=== PATIENT | female | born 1945 | race Caucasian/White ===

== ENCOUNTER 2017-01-07 18:40 | Inpatient (IN) | payer MEDICARE ==
[~2017-01-07] VITALS: Ht 157.5 cm; Wt 71.6 kg
[2017-01-07 18:45] VITALS: BP 199/91; PULSE 18; PULSE 80; RESP 16; TEMP 97.9; O2SAT 95
[2017-01-07] MEDS ORDERED: SODIUM CHLOR 0.9% 1000 ML INJ 1,000 ML IV SCH (19:03)
--- NOTE | 2017-01-07 19:09 | PD ---
HPI Chief Complaint: Chest Pain Time Seen by Provider: 18:58 Travel History International Travel<30 days: No Contact w/Intl Traveler<30days: No Traveled to known affect area: No History of Present Illness HPI The patient is a 71-year-old female who presents to the emergency department for epigastric abdominal pain and lower chest pain that started at 5 PM. The patient was eating garlic knots at approximately 5 PM when she developed epigastric abdominal pain and lower chest pain that radiates to the posterior aspect of the neck, left shoulder blade, and left arm. She does complain of shortness of breath but denies any nausea, vomiting, or diaphoresis. The patient denies any known history of coronary artery disease, hypertension, hyperlipidemia, tobacco use, or previous stress test. The patient denies any history of pancreatitis or biliary colic/symptomatic gallstones. The patient's primary physician is Dr. Abarca. The patient states the symptoms are moderate, exacerbated after eating garlic bouts, and there are no current alleviating factors. PFSH Past Medical History Narrative Medical Asthma Past Surgical History Narrative Surgical Neck surgery, bladder surgery Social History Tobacco Use: No Allergies-Medications (Allergen,Severity, Reaction): Coded Allergies: No Known Allergies (Unverified , 01/07/17) Reported Meds & Prescriptions Reported Meds & Active Scripts Active Reported Nexium (Esomeprazole DR) 20 Mg Capdr 20 Mg PO DAILY Breo Ellipta Inh (Fluticasone/Vilanterol) 100-25 Mcg/Act Inh 1 Puff INH HS Use daily at the same time. Review of Systems Except as stated in HPI: all other systems reviewed are Neg General / Constitutional: No: Fever Cardiovascular: Positive: Chest Pain or Discomfort Respiratory: Positive: Shortness of Breath Gastrointestinal: Positive: Abdominal Pain, No: Nausea, Vomiting Genitourinary: No: Dysuria Skin: No Rash Physical Exam Narrative GENERAL: Awake, alert, pleasant 71-year-old female who appears her stated age and is in no acute respiratory distress. SKIN: Focused skin assessment warm/dry. HEAD: Atraumatic. Normocephalic. EYES: Pupils equal and round. No scleral icterus. No injection or drainage. ENT: No nasal bleeding or discharge. Mucous membranes pink and moist. NECK: Trachea midline. No JVD. CARDIOVASCULAR: Regular rate and rhythm. No murmur appreciated. RESPIRATORY: No accessory muscle use. Clear to auscultation. Breath sounds equal bilaterally. GASTROINTESTINAL: Abdomen soft, tender palpation epigastrium and right upper quadrant. MUSCULOSKELETAL: No obvious deformities. No clubbing. No cyanosis. No edema. NEUROLOGICAL: Awake and alert. No obvious cranial nerve deficits. Motor grossly within normal limits. Normal speech. PSYCHIATRIC: Appropriate mood and affect; insight and judgment normal. Data Data Last Documented VS Vital Signs Date Time Temp Pulse Resp B/P (MAP) Pulse Ox O2 Delivery O2 Flow Rate FiO2 01/07/17 21:29 72 20 181/79 (113) 94 Nasal Cannula 2.00 01/07/17 18:45 97.9 Orders Orders Complete Blood Count With Diff (01/07/17 19:03) Comprehensive Metabolic Panel (01/07/17 19:) Lipase (01/07/17 19:03) Lactic Acid (01/07/17 19:03) Prothrombin Time / Inr (Pt) (01/07/17 19:03) Act Partial Throm Time (Ptt) (01/07/17 19:03) Urinalysis - C+S If Indicated (01/07/17 19:03) Iv Access Insert/Monitor (01/07/17 19:03) Ecg Monitoring (01/07/17 19:03) Oximetry (01/07/17 19:03) Morphine Inj (Morphine Inj) (01/07/17 19:15) Ondansetron Inj (Zofran Inj) (01/07/17 19:15) Sodium Chlor 0.9% 1000 Ml Inj (Ns 1000 M (01/07/17 19:03) Sodium Chloride 0.9% Flush (Ns Flush) (01/07/17 19:15) Electrocardiogram (01/07/17 19:03) Chest, Single Ap (01/07/17 19:03) Troponin I (01/07/17 19:03) Creatine Kinase (Cpk) (01/07/17 19:03) Ct Abd/Pel W Iv Contrast(Rout) (01/07/17 ) Ct Thorax/ Chest W Iv Contrast (01/07/17 ) Morphine Inj (Morphine Inj) (01/07/17 20:30) Iohexol 350 Inj (Omnipaque 350 Inj) (01/07/17 20:28) Act Partial Throm Time (Ptt) (01/07/17 21:38) Type And Screen (01/07/17 21:38) Ng Gastric Tube Insert/Monitor (01/07/17 21:44) Admit Order (Ed Use Only) (01/07/17 22:19) Chest, Single Ap (01/07/17 ) Labs Laboratory Tests Test 01/07/17 19:30 01/07/17 21:45 White Blood Count 9.5 TH/MM3 Red Blood Count 4.54 MIL/MM3 Hemoglobin 14.7 GM/DL Hematocrit 42.6 % Mean Corpuscular Volume 93.9 FL Mean Corpuscular Hemoglobin 32.4 PG Mean Corpuscular Hemoglobin Concent 34.5 % Red Cell Distribution Width 12.4 % Platelet Count 334 TH/MM3 Mean Platelet Volume 7.6 FL Neutrophils (%) (Auto) 69.2 % Lymphocytes (%) (Auto) 22.6 % Monocytes (%) (Auto) 6.1 % Eosinophils (%) (Auto) 1.6 % Basophils (%) (Auto) 0.5 % Neutrophils # (Auto) 6.6 TH/MM3 Lymphocytes # (Auto) 2.2 TH/MM3 Monocytes # (Auto) 0.6 TH/MM3 Eosinophils # (Auto) 0.2 TH/MM3 Basophils # (Auto) 0.1 TH/MM3 CBC Comment DIFF FINAL Differential Comment Prothrombin Time 10.2 SEC Prothromb Time International Ratio 0.9 RATIO Activated Partial Thromboplast Time 24.2 SEC 22.0 SEC Blood Urea Nitrogen 10 MG/DL Creatinine 0.78 MG/DL Random Glucose 114 MG/DL Total Protein 7.4 GM/DL Albumin 3.9 GM/DL Calcium Level 9.0 MG/DL Alkaline Phosphatase 109 U/L Aspartate Amino Transf (AST/SGOT) 34 U/L Alanine Aminotransferase (ALT/SGPT) 28 U/L Total Bilirubin 0.3 MG/DL Sodium Level 138 MEQ/L Potassium Level 3.9 MEQ/L Chloride Level 103 MEQ/L Carbon Dioxide Level 27.6 MEQ/L Anion Gap 7 MEQ/L Estimat Glomerular Filtration Rate 73 ML/MIN Lactic Acid Level 1.6 mmol/L Total Creatine Kinase 121 U/L Troponin I LESS THAN 0.02 NG/ML Lipase 254 U/L MDM Medical Decision Making Medical Screen Exam Complete: Yes Emergency Medical Condition: Yes Medical Record Reviewed: Yes Interpretation(s) EKG reveals normal sinus rhythm with a rate of 64. No ischemic changes or ectopy noted. Chest x-ray reveals suspect a large hiatal hernia. Laboratory Tests Test 01/07/17 19:30 White Blood Count 9.5 TH/MM3 Red Blood Count 4.54 MIL/MM3 Hemoglobin 14.7 GM/DL Hematocrit 42.6 % Mean Corpuscular Volume 93.9 FL Mean Corpuscular Hemoglobin 32.4 PG Mean Corpuscular Hemoglobin Concent 34.5 % Red Cell Distribution Width 12.4 % Platelet Count 334 TH/MM3 Mean Platelet Volume 7.6 FL Neutrophils (%) (Auto) 69.2 % Lymphocytes (%) (Auto) 22.6 % Monocytes (%) (Auto) 6.1 % Eosinophils (%) (Auto) 1.6 % Basophils (%) (Auto) 0.5 % Neutrophils # (Auto) 6.6 TH/MM3 Lymphocytes # (Auto) 2.2 TH/MM3 Monocytes # (Auto) 0.6 TH/MM3 Eosinophils # (Auto) 0.2 TH/MM3 Basophils # (Auto) 0.1 TH/MM3 CBC Comment DIFF FINAL Differential Comment Prothrombin Time 10.2 SEC Prothromb Time International Ratio 0.9 RATIO Activated Partial Thromboplast Time 24.2 SEC Blood Urea Nitrogen 10 MG/DL Creatinine 0.78 MG/DL Random Glucose 114 MG/DL Total Protein 7.4 GM/DL Albumin 3.9 GM/DL Calcium Level 9.0 MG/DL Alkaline Phosphatase 109 U/L Aspartate Amino Transf (AST/SGOT) 34 U/L Alanine Aminotransferase (ALT/SGPT) 28 U/L Total Bilirubin 0.3 MG/DL Sodium Level 138 MEQ/L Potassium Level 3.9 MEQ/L Chloride Level 103 MEQ/L Carbon Dioxide Level 27.6 MEQ/L Anion Gap 7 MEQ/L Estimat Glomerular Filtration Rate 73 ML/MIN Lactic Acid Level 1.6 mmol/L Total Creatine Kinase 121 U/L Troponin I LESS THAN 0.02 NG/ML Lipase 254 U/L Last Impressions Chest X-Ray 01/07/17 583 Signed Impressions: Service Date/Time: January 19:20 - CONCLUSION: Suspected large hiatal hernia. Handy Dhaliwal MD CT of the thorax reveals complex hiatal hernia. This predominantly consist of the mid and distal body of the stomach. These areas are flipped superiorly into the hernia sac consistent with a volvulus. Suspected consolidation or atelectasis adjacent to the hernia sac in the left lower lobe. CT abdomen and pelvis with IV contrast reveals gastric volvulus with the mid and distal gastric body seen herniating into a hiatal hernia sac. There is gastric dilation. Gallstones. Multiple hypodensities in the liver likely related to cyst or hemangioma's. Colonic diverticula. Chest x-ray status post NG tube placement reveals there is a hernia sac seen in the retrocardiac area. This contains the body of the stomach best seen on the CT examination. The NG tube is seen extending inferiorly to the expected location of the EG junction region and then is directed towards the left. The hernia sac appears unchanged from a prior exam. CT the abdomen and pelvis reveals a large hiatal hernia containing the majority of the stomach. I am not able to appreciate any discrete volvulus according to radiology. Small hepatic cyst. Cholelithiasis. Differential Diagnosis Differential diagnosis includes atypical ACS, gastritis, GERD, esophageal spasm , perforated viscus, cholecystitis, pancreatitis, biliary colic, AAA, dissection , hiatal hernia, perforated viscus. Narrative Course IV was established, labs are drawn and sent, and the patient was placed on cardiac telemetry monitoring and continuous pulse oximetry monitoring. The patient was administer morphine, Zofran, and IV fluids. Upright chest x-ray was obtained to rule out perforated viscus. CT the abdomen and pelvis with IV contrast was ordered to evaluate the gallbladder, pancreas, and aorta. EKG was ordered and interpreted. EKG was unremarkable. Chest x-ray reveals hiatal hernia, however, there does appear to be a second ridge line, possibly gastric volvulus. Therefore, CT of the thorax was added to CT of the abdomen and pelvis. CT of the abdomen and pelvis is consistent with complex final hernia with gastric volvulus. I called the on-call general surgeon, Dr. Pelletier, however, the patient has [facility]. Therefore, the [facility] surgeon was paged at 9:35 PM. The patient's last meal was at 5 PM. I discussed the patient with the on-call [facility] general surgeon, Dr. Tripathi. After discussion it was agreed the patient evidently NG tube to suction, after decompression, patient would have oral contrast to the NG tube and repeat CT would be performed to evaluate the complex hiatal hernia with gastric volvulus more completely, for possible decompression. The patient will be admitted to the intensive care unit. I discussed the patient with Dr. Zazueta, who agrees with admission. The patient was reevaluated at 11 PM, she had over 500 cc of output through the NG tube. Her symptoms had considerably improved. CT of the abdomen with oral contrast to the NG tube was then obtained. Physician Communication Physician Communication The on-call [facility] surgeon was paged at 9:35 PM. I discussed the patient with Dr. Tripathi. I discussed the patient with the on-call four corner stayer machine operator, Dr. Zazueta, the patient will be admitted to [facility]. Diagnosis Primary Impression: Acute gastric volvulus Additional Impression: Hiatal hernia Admitting Information Admitting Physician Requests: Admit Condition: Stable Ryan Tovar MD Jan 07, 2017 19:09
[2017-01-07] MEDS ORDERED: MORPHINE SULFATE 4 MG/ML INJ IV PUSH ONE ×2 (19:15→20:30)
[2017-01-07] MEDS ORDERED: SODIUM CHLORIDE 0.9% FLUSH 10 ML FLUSH IV FLUSH PRN ×2 (19:15→23:45)
[2017-01-07] MEDS ORDERED: ONDANSETRON HCL 4 MG/2 ML VIAL IVP ONE (19:15)
[2017-01-07] MEDS ORDERED: NEXI20CA PO (19:36)
[2017-01-07] MEDS ORDERED: FLUT1INH INH (19:36)
[2017-01-07 19:44] LABS: AUTOMATED NEUTROPHIL # 6.6 TH/MM3 (1.8-7.7); BASOPHIL # 0.1 TH/MM3 (0-0.2); BASOPHIL % 0.5 % (0.0-2.0); EOSINOPHIL # 0.2 TH/MM3 (0-0.4); EOSINOPHIL % 1.6 % (0.0-4.0); HEMATOCRIT 42.6 % (35.0-46.0); HEMO FLAGS DIFF FINAL; LYMPH % 22.6 % (9.0-44.0); LYMPHOCYTE # 2.2 TH/MM3 (1.0-4.8); MEAN CELL VOLUME 93.9 FL (80.0-100.0); MEAN CORPUSCULAR HEMOGLOBIN 32.4 PG (27.0-34.0); MEAN CORPUSCULAR HGB CONC 34.5 % (32.0-36.0); MONO % 6.1 % (0.0-8.0); NEUT % 69.2 % (16.0-70.0); PLATELET COUNT 334 TH/MM3 (150-450); RED BLOOD COUNT 4.54 MIL/MM3 (4.00-5.30); RED CELL DISTRIBUTION WIDTH 12.4 % (11.6-17.2); WHITE BLOOD COUNT 9.5 TH/MM3 (4.0-11.0)
[2017-01-07 19:46] VITALS: BP 172/80; PULSE 53; RESP 20; O2SAT 96
[2017-01-07 20:01] LABS: APTT (PATIENT) 24.2 SEC (24.3-30.1); INTERNATIONAL NORMALIZED RATIO 0.9 RATIO; PROTHROMBIN TIME - PATIENT 10.2 SEC (9.8-11.6)
[2017-01-07 20:02] LABS: ANION GAP 7 MEQ/L (5-15); BICARBONATE 27.6 MEQ/L (21.0-32.0); BLOOD UREA NITROGEN 10 MG/DL (7-18); CHLORIDE 103 MEQ/L (98-107); GLOMERULAR FILTRATION RATE 73 ML/MIN (>89); SODIUM (NA) 138 MEQ/L (136-145)
[2017-01-07 20:03] LABS: ALT (GPT) 28 U/L (10-53)
[2017-01-07 20:05] LABS: POTASSIUM 3.9 MEQ/L (3.5-5.1)
[2017-01-07 20:09] LABS: ALKALINE PHOSPHATASE 109 U/L (45-117); AST (GOT) 34 U/L (15-37); CREATINE KINASE 121 U/L (26-192); TOTAL BILIRUBIN ADULT 0.3 MG/DL (0.2-1.0)
--- NOTE | 2017-01-07 20:11 | RADRPT ---
EXAM DATE/TIME: 01/07/2017 19:20 [facility] COMPARISON: No previous studies available for comparison. INDICATIONS : Mid chest pain. MEDICAL HISTORY : Asthma. SURGICAL HISTORY : Appendectomy. ENCOUNTER: Initial ACUITY: 1 day PAIN SCORE: 10/10 LOCATION: Bilateral chest FINDINGS: There is a large retrocardiac mass with air lucency thought to be related to a hiatal hernia. The hea rt size is normal. The lungs are clear. There is a prominent dextroscoliosis of the thoracic spine. N o effusion is seen. CONCLUSION: Suspected large hiatal hernia. Handy Dhaliwal MD on January 07, 2017 at 20:09 Board Certified Radiologist. This report was verified electronically.
[2017-01-07] MEDS ORDERED: IOHEXOL 350 MG/ML 10 ML VIAL (for RAD DIAG) IVCONTRAST ONE (20:28)
[2017-01-07 21:29] VITALS: BP 181/79; PULSE 72; RESP 20; O2SAT 94
--- NOTE | 2017-01-07 21:29 | RADRPT ---
EXAM DATE/TIME: 01/07/2017 20:20 [facility] COMPARISON: No previous studies available for comparison. INDICATIONS : Abdomen pain; shortness of breath; sudden onset pain, Abnormal chest x-ray, evalua te hiatal hernia vs. volvulus. IV CONTRAST: 100 cc Omnipaque 350 (iohexol) IV ; Cumulative dose for multiple exams. RADIATION DOSE: 9.96 CTDIvol (mGy) ; Combined studies - Thorax/Abdomen/Pelvis MEDICAL HISTORY : None SURGICAL HISTORY : None. ENCOUNTER: Initial ACUITY: 1 day PAIN SCALE: 8/10 LOCATION: Bilateral chest TECHNIQUE: Volumetric scanning of the chest was performed. Using automated exposure control and adjustment of the mA and/or kV according to patient size, radiation dose was kept as low as reasonab ly achievable to obtain optimal diagnostic quality images. DICOM format image data is available adrianne ctronically for review and comparison. Follow-up recommendations for detected pulmonary nodules are based at a minimum on nodule size and pa tient risk factors according to Fleischner Society Guidelines. FINDINGS: There is a hiatal hernia containing the distal aspect of the stomach consistent with a volvulus. The EG junction is seen in the relatively normal position. The body of the stomach is seen to extend superiorly initially on the left and then to the right side of the hernia and the junction between the distal stomach and the duodenum is seen in the right upper abdomen just below the hiatal hernia. There is chronic emphysematous change seen in the upper lungs. There are some areas of linear scarri ng seen in the upper lungs being more prominent on the right. There is an area of consolidation and/ or atelectasis at the left lower lobe adjacent to the hiatal hernia sac. No effusion is seen. Signi ficant mediastinal adenopathy is not appreciated. There is a prominent dextroscoliosis of the thorac ic spine. The patient is to have a CT of the abdomen and pelvis to follow-up. CONCLUSION: 1. Complex hiatal hernia. This predominantly consists of the mid and distal body of the stomach. Th tom areas are flipped superiorly into the hernia sac consistent with a volvulus. 2. Suspected consolidation or atelectasis adjacent to the hernia sac in the left lower lobe. Handy Dhaliwal MD on January 07, 2017 at 21:18 Board Certified Radiologist. This report was verified electronically.
--- NOTE | 2017-01-07 21:36 | RADRPT ---
EXAM DATE/TIME: 01/07/2017 20:18 [facility] COMPARISON: No previous studies available for comparison. INDICATIONS : Shortness of breath. IV CONTRAST: 100 cc Omnipaque 350 (iohexol) IV ; Cumulative dose for multiple exams. ORAL CONTRAST: No oral contrast ingested. RADIATION DOSE: 9.96 CTDIvol (mGy) ; Combined studies - Thorax/Abdomen/Pelvis MEDICAL HISTORY : None SURGICAL HISTORY : None. ENCOUNTER: Initial ACUITY: 1 day PAIN SCALE: 8/10 LOCATION: Bilateral abdomen TECHNIQUE: Volumetric scanning of the abdomen and pelvis was performed. Using automated exposure control and adjustment of the mA and/or kV according to patient size, radiation dose was kept as low as reasonably achievable to obtain optimal diagnostic quality images. DICOM format image data is av ailable electronically for review and comparison. FINDINGS: There is a hiatal hernia sac containing the mid and distal aspect of the stomach. This is consistent with a volvulus. The EG junction region appears to be in a relatively normal position. The body of the stomach extends superiorly and to the left. The more distal aspect of the gastric body is seen on the right side. The junction between the distal stomach and the duodenum is seen in the right upper quadrant just below the hernia sac. The stomach does appear distended. Calcified gallstones are present. There are several hypodensities identified in the liver likely rel ated to cysts. The pancreas and spleen appear normal. The adrenal glands and kidneys are unremarkabl e. There is atherosclerotic calcification seen throughout the arterial system. An aneurysm is not s een. Significant adenopathy is not appreciated. There are colonic diverticula seen particularly in t he descending and sigmoid portions of the colon. The anterior abdominal wall appears intact. The pe lvic structures appear grossly intact. The patient has a severe dextroscoliosis of the thoracic spine and a compensatory levocurvature of the lumbar spine. This is associated with degenerative change se en with these findings. CONCLUSION: 1. Gastric volvulus with the mid and distal gastric body seen herniating into a hiatal hernia sac. T here is gastric dilatation. 2. Gallstones. 3. Multiple hypodensities in the liver likely related to cysts or hemangiomas. 4. Colonic diverticula. Handy Dhaliwal MD on January 07, 2017 at 21:21 Board Certified Radiologist. This report was verified electronically.
[2017-01-07] MEDS ORDERED: DIATRIZOATE MEGLUM/DIATRIZOATE SOD 9 ML CUP PO ONE (22:35)
[2017-01-07] MEDS ORDERED: DIATRIZOATE MEGLUM/DIATRIZOATE SOD 9 ML CUP ONE (22:36)
--- NOTE | 2017-01-07 22:58 | RADRPT ---
EXAM DATE/TIME: 01/07/2017 22:25 [facility] COMPARISON: CHEST SINGLE AP, January 07, 2017, 19:20. INDICATIONS : Post NG tube placement. MEDICAL HISTORY : Asthma SURGICAL HISTORY : Appendectomy. ENCOUNTER: Subsequent ACUITY: 1 day PAIN SCORE: 3/10 LOCATION: Bilateral chest FINDINGS: There is a hernia sac seen in the retrocardiac area. This contains the body of the stomach best seen on the CT examination. The NG tube is seen extending inferiorly to the expected location of the EG ju nction region and then is directed towards the left. The hernia sac appears unchanged from the prior exam. The heart size is normal. The lungs are grossly clear. There is a prominent dextroscoliosis of the thoracic spine. CONCLUSION: NG tube as described above. Hadny Dhaliwal MD on January 07, 2017 at 22:55 Board Certified Radiologist. This report was verified electronically.
[2017-01-07 23:03] VITALS: BP 128/70; PULSE 84; RESP 17; O2SAT 92
--- NOTE | 2017-01-07 23:36 | HHI.HP ---
HPI Service Critical Care Medicine Primary Care Physician Non-Staff Admission Diagnosis gastric volvulus, large hiatal hernia Diagnosis: Travel History International Travel<30 Days: No Contact w/Intl Traveler <30 Da: No Traveled to Known Affected Are: No History of Present Illness 71-year-old female with no significant past medical history presents with epigastric abdominal pain and lower chest pain that started at 5 PM. The patient was eating garlic knots at approximately 5 PM when she developed epigastric abdominal pain and lower chest pain that radiates to the posterior aspect of the neck, left shoulder blade, and left arm. She also complained of shortness of breath but denies any nausea, vomiting, or diaphoresis. The patient denies any known history of coronary artery disease, hypertension, hyperlipidemia, tobacco use, or previous stress test. CT of the chest abdomen and pelvis revealed large hiatal hernia with gastric volvulus. The NG tube was placed on a low wall suction for stomach decompression with significant relief of symptoms. Review of Systems Constitutional: DENIES: Diaphoretic episodes, Fatigue, Fever, Weight gain, Weight loss, Chills, Dizziness, Change in appetite, Night Sweats Endocrine: DENIES: Abnorml menstrual pattern, Heat/cold intolerance, Polydipsia , Polyuria, Polyphagia Eyes: DENIES: Blurred vision, Diplopia, Eye inflammation, Eye pain, Vision loss , Photosensitivity, Double Vision Ears, nose, mouth, throat: DENIES: Tinnitus, Hearing loss, Vertigo, Nasal discharge, Oral lesions, Throat pain, Hoarseness, Ear Pain, Running Nose, Epistaxis, Sinus Pain, Toothache, Odynophagia Respiratory: COMPLAINS OF: Shortness of breath, DENIES: Apneas, Cough, Snoring , Wheezing, Hemoptysis, Sputum production Cardiovascular: COMPLAINS OF: Chest pain, DENIES: Palpitations, Syncope, Dyspnea on Exertion, PND, Lower Extremity Edema, Orthopnea, Claudication Gastrointestinal: COMPLAINS OF: Abdominal pain, DENIES: Black stools, Bloody stools, Constipation, Diarrhea, Nausea, Vomiting, Difficulty Swallowing, Anorexia Genitourinary: DENIES: Abnormal vaginal bleeding, Dysmenorrhea, Dyspareunia, Sexual dysfunction, Urinary frequency, Urinary incontinence, Urgency, Hematuria , Dysuria, Nocturia, Vaginal discharge Musculoskeletal: DENIES: Joint pain, Muscle aches, Stiffness, Joint Swelling, Back pain, Neck pain Integumentary: DENIES: Abnormal pigmentation, Pruritus, Rash, Nail changes, Breast masses, Breast skin changes, Nipple discharge Hematologic/lymphatic: DENIES: Bruising, Lymphadenopathy Immunologic/allergic: DENIES: Eczema, Urticaria Neurologic: DENIES: Abnormal gait, Headache, Localized weakness, Paresthesias, Seizures, Speech Problems, Tremor, Poor Balance Psychiatric: DENIES: Anxiety, Confusion, Mood changes, Depression, Hallucinations, Agitation, Suicidal Ideation, Homicidal Ideation, Delusions Past Family Social History Allergies: Coded Allergies: No Known Allergies (Unverified , 01/07/17) Past Medical History Asthma Past Surgical History Neck Surgery Bladder surgery Reported Medications Reported Meds & Active Scripts Active Reported Nexium (Esomeprazole DR) 20 Mg Capdr 20 Mg PO DAILY Breo Ellipta Inh (Fluticasone/Vilanterol) 100-25 Mcg/Act Inh 1 Puff INH HS Use daily at the same time. Active Ordered Medications Current Medications Medications (Trade) Dose Ordered Sig/Eric Route PRN Reason Start Time Stop Time Status Last Admin Dose Admin Sodium Chloride 1,000 ml @ 125 mls/hr Q8H IV 01/07/17 19:03 01/08/17 03:02 01/07/17 19:52 Sodium Chloride 1,000 ml @ 84 mls/hr [id number] IV 01/07/17 23:31 Sodium Chloride (NS Flush) 2 ml UNSCH PRN IV FLUSH FLUSH AFTER USING IV ACCESS 01/07/17 23:45 Sodium Chloride (NS Flush) 2 ml BID IV FLUSH 01/08/17 09:00 Acetaminophen (Tylenol) 650 mg Q6H PRN PO PAIN 1-10 AND/OR FEVER >101F 01/07/17 23:45 Morphine Sulfate (Morphine Inj) 2 mg Q2H PRN IV PUSH PAIN SCALE 6 TO 10 01/07/17 23:45 Pantoprazole Sodium (Protonix Inj) 40 mg DAILY IV PUSH 01/08/17 09:00 Ondansetron HCl (Zofran Inj) 4 mg Q6H PRN IV PUSH NAUSEA OR VOMITING 01/07/17 23:45 Heparin Sodium (Porcine) (Heparin Inj) 5,000 units Q8HR SQ 01/08/17 06:00 Miscellaneous Information 1 [id number] XX 01/07/17 23:45 Chlorhexidine Gluconate (Chlorhexidine 2% Cloth) 3 pack Taper DAILY@04 TOP 01/08/17 04:00 01/04/18 03:59 Chlorhexidine Gluconate (Chlorhexidine 2% Cloth) 3 pack UNSCH PRN TOP HYGIENIC CARE 01/07/17 23:45 Senna/Docusate Sodium (Sweta-Colace) 1 tab BID PO 01/08/17 09:00 Magnesium Hydroxide (Milk Of Magnesia Liq) 30 ml Q12H PRN PO MILD - MODERATE CONSTIPATION 01/07/17 23:45 Sennosides (Senokot) 17.2 mg Q12H PRN PO MODERATE - SEVERE CONSTIPATION 01/07/17 23:45 Bisacodyl (Dulcolax Supp) 10 mg DAILY PRN RECTAL SEVERE CONSITIPATION 01/07/17 23:45 Lactulose (Lactulose Liq) 30 ml DAILY PRN PO SEVERE CONSITIPATION 01/07/17 23:45 Family History No family history significant for coronary artery disease or cancer Social History Denies history of tobacco, illicit drug, or alcohol abuse Physical Exam Vital Signs Vital Signs Date Time Temp Pulse Resp B/P (MAP) Pulse Ox O2 Delivery O2 Flow Rate FiO2 01/07/17 23:03 84 17 128/70 (89) 92 Room Air 01/07/17 21:29 72 20 181/79 (113) 94 Nasal Cannula 2.00 01/07/17 21:15 20 01/07/17 20:35 20 01/07/17 19:46 53 20 172/80 (110) 96 Nasal Cannula 2.00 01/07/17 19:37 96 Nasal Cannula 2.00 01/07/17 18:45 97.9 80 16 199/91 (127) 95 Physical Exam GENERAL: Well-nourished, well-developed patient. SKIN: Warm and dry. HEAD: Normocephalic. EYES: No scleral icterus. No injection or drainage. NECK: Supple, trachea midline. No JVD or lymphadenopathy. CARDIOVASCULAR: Regular rate and rhythm without murmurs, gallops, or rubs. RESPIRATORY: Breath sounds equal bilaterally. No accessory muscle use. GASTROINTESTINAL: Abdomen soft, non-tender, nondistended. MUSCULOSKELETAL: No cyanosis, or edema. BACK: Nontender without obvious deformity. NEURO EXAM: GCS: M6 V5 E4 Mental Status: The patient is alert and oriented to person, place, and time with normal speech. Cranial Nerves: Visual acuity intact bilaterally. Visual ma normal in all quadrants. Pupils are round, reactive to light. Extraocular movements are intact without ptosis. Hearing is normal bilaterally. Voice is normal. Tongue protrudes midline and moves symmetrically. Reflexes: Biceps, patellar, and Achilles are 2/4 bilaterally. No clonus. Sensation: Sensation is intact bilaterally to pain and light touch. Two-point discrimination is intact. Motor: Good muscle tone. Strength is 5/5 bilaterally. Cerebellar: Naatjo-lp-drux and tvij-jw-[id number] test normal bilaterally. Laboratory Laboratory Tests Test 01/07/17 19:30 01/07/17 21:45 White Blood Count 9.5 Red Blood Count 4.54 Hemoglobin 14.7 Hematocrit 42.6 Mean Corpuscular Volume 93.9 Mean Corpuscular Hemoglobin 32.4 Mean Corpuscular Hemoglobin Concent 34.5 Red Cell Distribution Width 12.4 Platelet Count 334 Mean Platelet Volume 7.6 Neutrophils (%) (Auto) 69.2 Lymphocytes (%) (Auto) 22.6 Monocytes (%) (Auto) 6.1 Eosinophils (%) (Auto) 1.6 Basophils (%) (Auto) 0.5 Neutrophils # (Auto) 6.6 Lymphocytes # (Auto) 2.2 Monocytes # (Auto) 0.6 Eosinophils # (Auto) 0.2 Basophils # (Auto) 0.1 CBC Comment DIFF FINAL Differential Comment Prothrombin Time 10.2 Prothromb Time International Ratio 0.9 Activated Partial Thromboplast Time 24.2 22.0 Blood Urea Nitrogen 10 Creatinine 0.78 Random Glucose 114 Total Protein 7.4 Albumin 3.9 Calcium Level 9.0 Alkaline Phosphatase 109 Aspartate Amino Transf (AST/SGOT) 34 Alanine Aminotransferase (ALT/SGPT) 28 Total Bilirubin 0.3 Sodium Level 138 Potassium Level 3.9 Chloride Level 103 Carbon Dioxide Level 27.6 Anion Gap 7 Estimat Glomerular Filtration Rate 73 Lactic Acid Level 1.6 Total Creatine Kinase 121 Troponin I LESS THAN 0.02 Lipase 254 Result Diagram: 01/07/17192901/07/171929 Imaging Last 24 hours Impressions Chest X-Ray 01/07/17 190 Signed Impressions: Service Date/Time: January 19:20 - CONCLUSION: Suspected large hiatal hernia. Handy Dhaliwal MD Caprini VTE Risk Assessment Caprini VTE Risk Assessment: Mod/High Risk (score >= 2) Caprini Risk Assessment Model Point Value = 1 Point Value = 2 Point Value = 3 Point Value = 5 Age 41-60 Minor surgery BMI > 25 kg/m2 Swollen legs Varicose veins or History of unexplained or recurrent spontaneous Oral contraceptives or hormone replacement Sepsis (< 1 month) Serious lung disease, including pneumonia (< 1 month) Abnormal pulmonary function Acute myocardial infarction Congestive heart failure (< 1 month) History of inflammatory bowel disease Medical patient at bed rest Age 61-74 Arthroscopic surgery Major open surgery (> 45 min) Laparoscopic surgery (> 45 min) Malignancy Confined to bed (> 72 hours) Immobilizing plaster cast Central venous access Age >= 75 History of VTE Family history of VTE Factor V Leiden Prothrombin [id number] Lupus anticoagulant Anticardiolipin antibodies Elevated serum homocysteine Heparin-induced thrombocytopenia Other congenital or acquired thrombophilia Stroke (< 1 month) Elective arthroplasty Hip, pelvis, or leg fracture Acute spinal cord injury (< 1 month) Prophylaxis Regimen Total Risk Factor Score Risk Level Prophylaxis Regimen 0-1 Low Early ambulation 2 Moderate Order ONE of the following: *Sequential Compression Device (SCD) *Heparin 5000 units SQ BID 3-4 Higher Order ONE of the following medications: *Heparin 5000 units SQ TID *Enoxaparin/Lovenox 40 mg SQ daily (WT < 150 kg, CrCl > 30 mL/min) *Enoxaparin/Lovenox 30 mg SQ daily (WT < 150 kg, CrCl > 10-29 mL/min) *Enoxaparin/Lovenox 30 mg SQ BID (WT < 150 kg, CrCl > 30 mL/min) AND/OR *Sequential Compression Device (SCD) 5 or more Highest Order ONE of the following medications: *Heparin 5000 units SQ TID (Preferred with Epidurals) *Enoxaparin/Lovenox 40 mg SQ daily (WT < 150 kg, CrCl > 30 mL/min) *Enoxaparin/Lovenox 30 mg SQ daily (WT < 150 kg, CrCl > 10-29 mL/min) *Enoxaparin/Lovenox 30 mg SQ BID (WT < 150 kg, CrCl > 30 mL/min) AND *Sequential Compression Device (SCD) Assessment and Plan Assessment and Plan Hiatal hernia with gastric volvulus - Nothing by mouth - NG tube to low intermittent suction to decompress GI tract - Surgical evaluation - ICU monitoring Hypertension - Hydralazine when necessary to keep SBP less than 160 History of asthma - DuoNeb's when necessary Nausea vomiting - Due to above - Gentle IV hydration - Nothing by mouth - Zofran when necessary DVT GI prophylaxis - Protonix - Teds SCDs - Subcutaneous heparin Critical Care: The total critical care time was 35 minutes. Time to perform other separately billable procedures was not included in the critical care time. Alexandru Zazueta MD Jan 07, 2017 23:36
--- NOTE | 2017-01-07 23:39 | RADRPT ---
EXAM DATE/TIME: 01/07/2017 23:19 [facility] COMPARISON: CT ABDOMEN & PELVIS W CONTRAST, January 07, 2017, 20:18. INDICATIONS : Upper abdominal pain and shortness of breath. Evaluate gastric volvulus. ORAL CONTRAST: Prescribed oral contrast ingested. RADIATION DOSE: 6.53 CTDIvol (mGy) MEDICAL HISTORY : None SURGICAL HISTORY : None. ENCOUNTER: Initial ACUITY: 1 day PAIN SCALE: 6/10 LOCATION: Bilateral upper quadrant TECHNIQUE: Volumetric scanning of the abdomen was performed. Using automated exposure control and adjustment of the mA and/or kV according to patient size, radiation dose was kept as low as reasonably achievable to obtain optimal diagnostic quality images. DICOM format image data is available electronically for review and comparison. FINDINGS: LOWER LUNGS: Emphysematous changes within the visualized lung bases. A large hiatal hernia seen containing the prieto ority of the stomach. No gastric volvulus appreciated. A the tip of the NG tube is within the lower t horacic esophagus. LIVER: Small hepatic cysts are noted. A total of 5 are seen. The largest measures 1.9 cm within segment 4. H [place] units are zero. No solid lesion observed on this unenhanced study. Small calcified gallston e is noted. The gall bladder is well distended without wall thickening or pericholecystic fluid. SPLEEN: Normal size without lesion. PANCREAS: Within normal limits. KIDNEYS: Normal in size and shape. There is no mass, stone, or hydronephrosis. ADRENAL GLANDS: Diffuse calcified plaque. No aneurysmal change appreciated. AORTA/RETROPERITONEAL: There is no aneurysm or lymphadenopathy. BOWEL/MESENTERY: There is a large hiatal hernia. I'm not able to appreciate any discrete volvulus of the stomach. Oral contrast is seen within the stomach as well as within the duodenum. No dilatation of the stomach or visualized bowel structures. No free air or free fluid. MUSCULOSKELETAL: A scoliotic and degenerative spine. CONCLUSION: 1. There is a large hiatal hernia containing the majority of the stomach. I am not able to appreciate any discrete volvulus. 2. Small hepatic cysts. 3. Cholelithiasis. Kevon Osullivan Jr., MD on January 07, 2017 at 23:28 Board Certified Radiologist. This report was verified electronically.
[2017-01-07] MEDS ORDERED: BISACODYL 10 MG SUPP RECTAL PRN (23:45)
[2017-01-07] MEDS ORDERED: LACTULOSE SYRUP 20 GM/30 ML CUP PO PRN (23:45)
[2017-01-07] MEDS ORDERED: MORPHINE SULFATE 4 MG/ML INJ IV PUSH PRN (23:45)
[2017-01-07] MEDS ORDERED: MISCELLANEOUS NURSING INFORMATION XX SCH (23:45)
[2017-01-07] MEDS ORDERED: ONDANSETRON HCL 4 MG/2 ML VIAL IV PUSH PRN (23:45)
[2017-01-07] MEDS ORDERED: ACETAMINOPHEN 325 MG TAB PO PRN (23:45)
[2017-01-07] MEDS ORDERED: MAGNESIUM HYDROXIDE SUSP 30 ML CUP PO PRN (23:45)
[2017-01-07] MEDS ORDERED: CHLORHEXIDINE GLUCONATE 2 % 1 PACK (2 CLOTHS) TOP PRN (23:45)
[2017-01-07] MEDS ORDERED: SENNOSIDES 8.6 MG TAB PO PRN (23:45)
[2017-01-08] VITALS (7 sets, daily range): BP systolic 126–175; BP diastolic 58–79; PULSE 59–77; RESP 18–21; TEMP 97.8–98.4; O2SAT 91–100
[2017-01-08] MEDS: SODIUM CHLOR 0.9% 1000 ML INJ 1,000 ML IV SCH ×2 (00:45→06:42)
[2017-01-08] MEDS: CHLORHEXIDINE GLUCONATE 2 % 1 PACK (2 CLOTHS) TOP SCH (03:51)
[2017-01-08 04:52] LABS: AUTOMATED NEUTROPHIL # 4.8 TH/MM3 (1.8-7.7); BASOPHIL % 0.1 % (0.0-2.0); EOSINOPHIL % 0.1 % (0.0-4.0); HEMATOCRIT 39.4 % (35.0-46.0); HEMO FLAGS DIFF FINAL; LYMPH % 17.8 % (9.0-44.0); LYMPHOCYTE # 1.1 TH/MM3 (1.0-4.8); MEAN CELL VOLUME 93.9 FL (80.0-100.0); MEAN CORPUSCULAR HEMOGLOBIN 31.3 PG (27.0-34.0); MEAN CORPUSCULAR HGB CONC 33.3 % (32.0-36.0); MONO % 6.1 % (0.0-8.0); NEUT % 75.9 % (16.0-70.0); PLATELET COUNT 311 TH/MM3 (150-450); RED CELL DISTRIBUTION WIDTH 12.5 % (11.6-17.2); WHITE BLOOD COUNT 6.3 TH/MM3 (4.0-11.0)
[2017-01-08 05:13] LABS: ALT (GPT) 23 U/L (10-53); ANION GAP 8 MEQ/L (5-15); AST (GOT) 17 U/L (15-37); BICARBONATE 26.1 MEQ/L (21.0-32.0); BLOOD UREA NITROGEN 9 MG/DL (7-18); CHLORIDE 108 MEQ/L (98-107); GLOMERULAR FILTRATION RATE 105 ML/MIN (>89); POTASSIUM 3.7 MEQ/L (3.5-5.1); SODIUM (NA) 142 MEQ/L (136-145)
[2017-01-08 05:15] LABS: ALKALINE PHOSPHATASE 91 U/L (45-117); TOTAL BILIRUBIN ADULT 0.3 MG/DL (0.2-1.0)
[2017-01-08] MEDS: HEPARIN SODIUM - SQ 10,000 UNITS/ML VIAL SQ SCH ×3 (06:39→23:12)
[2017-01-08 06:56] LABS: BACTERIA, URINE RARE /hpf; BLOOD, URINE NEG (NEG); COMMENT (UR) CULTURE INDICATED; CULTURE IF INDICATED CULTURE INDICATED; GLUCOSE,URINE NEG (NEG); KETONE, URINE 10 mg/dL (NEG); MUCUS URINE FEW /lpf (OCC); NITRITE,URINE NEG (NEG); SQUAMOUS EPITHELIAL CELL URINE 1 /hpf (0-5); TRANSITIONAL EPI CELLS, URINE <1 /hpf; URINE COLOR YELLOW (YELLW/STRAW)
[2017-01-08] MEDS: DOCUSATE SODIUM 50 MG/SENNA 8.6 MG TAB PO SCH ×2 (09:00→21:00)
[2017-01-08] MEDS: SODIUM CHLORIDE 0.9% FLUSH 10 ML FLUSH IV FLUSH SCH ×2 (09:00→21:01)
[2017-01-08] MEDS: PANTOPRAZOLE SODIUM 40 MG VIAL IV PUSH SCH (09:44)
[2017-01-08] MEDS: D5-LR + KCL 20 MEQ INJ 1,000 ML IV SCH (11:30)
--- NOTE | 2017-01-08 11:36 | PD.CONS ---
General Surgery Consult Gen. surgery was consulted to evaluate this patient for large hiatal hernia and intrathoracic stomach. The patient presented to the emergency department yesterday with significant upper abdominal pain that was unrelenting and unrelieved by morphine. Despite the pain, she had no nausea or vomiting. A CT scan revealed a large hiatal hernia with possible organoaxial rotation of the stomach; a nasogastric tube was placed and she had an immediate return of 500 mL 's of gastric fluid with relief of her pain. Subsequent CT scan showed no volvulus. At the present time, the patient states that she is much more comfortable than yesterday although she has mild pain in the upper abdomen. Her main complaint is the presence of the nasogastric tube. She has not passed any flatus. Past medical history is well-documented in the remainder of the chart. Physical exam: HEENT: No injuries, scleral icterus, or inflammation. CHEST: Lungs are clear to percussion and auscultation. HEART: Regular rate and rhythm ABDOMEN: The abdomen is slightly distended and mildly tender to palpation of the upper abdomen with the lower abdomen completely benign. She has no guarding or rebound tenderness. EXTREMITIES: No cyanosis, clubbing, or edema. NEURO: The patient is awake and alert and oriented 3. She has no obvious neurologic deficits. Laboratory Tests Test 01/07/17 19:30 01/07/17 21:45 01/08/17 01:40 01/08/17 04:07 White Blood Count 9.5 TH/MM3 6.3 TH/MM3 Red Blood Count 4.54 MIL/MM3 4.20 MIL/MM3 Hemoglobin 14.7 GM/DL 13.1 GM/DL Hematocrit 42.6 % 39.4 % Mean Corpuscular Volume 93.9 FL 93.9 FL Mean Corpuscular Hemoglobin 32.4 PG 31.3 PG Mean Corpuscular Hemoglobin Concent 34.5 % 33.3 % Red Cell Distribution Width 12.4 % 12.5 % Platelet Count 334 TH/MM3 311 TH/MM3 Mean Platelet Volume 7.6 FL 7.0 FL Neutrophils (%) (Auto) 69.2 % 75.9 % Lymphocytes (%) (Auto) 22.6 % 17.8 % Monocytes (%) (Auto) 6.1 % 6.1 % Eosinophils (%) (Auto) 1.6 % 0.1 % Basophils (%) (Auto) 0.5 % 0.1 % Neutrophils # (Auto) 6.6 TH/MM3 4.8 TH/MM3 Lymphocytes # (Auto) 2.2 TH/MM3 1.1 TH/MM3 Monocytes # (Auto) 0.6 TH/MM3 0.4 TH/MM3 Eosinophils # (Auto) 0.2 TH/MM3 0.0 TH/MM3 Basophils # (Auto) 0.1 TH/MM3 0.0 TH/MM3 CBC Comment DIFF FINAL DIFF FINAL Differential Comment Prothrombin Time 10.2 SEC Prothromb Time International Ratio 0.9 RATIO Activated Partial Thromboplast Time 24.2 SEC 22.0 SEC Blood Urea Nitrogen 10 MG/DL Creatinine 0.78 MG/DL Random Glucose 114 MG/DL Total Protein 7.4 GM/DL Albumin 3.9 GM/DL Calcium Level 9.0 MG/DL Alkaline Phosphatase 109 U/L Aspartate Amino Transf (AST/SGOT) 34 U/L Alanine Aminotransferase (ALT/SGPT) 28 U/L Total Bilirubin 0.3 MG/DL Sodium Level 138 MEQ/L Potassium Level 3.9 MEQ/L Chloride Level 103 MEQ/L Carbon Dioxide Level 27.6 MEQ/L Anion Gap 7 MEQ/L Estimat Glomerular Filtration Rate 73 ML/MIN Lactic Acid Level 1.6 mmol/L Total Creatine Kinase 121 U/L Troponin I LESS THAN 0.02 NG/ML Lipase 254 U/L Nasal Screen MRSA (PCR) MRSA NOT DETECTED Test 01/08/17 04:23 01/08/17 06:20 Blood Urea Nitrogen 9 MG/DL Creatinine 0.57 MG/DL Random Glucose 125 MG/DL Total Protein 6.1 GM/DL Albumin 3.1 GM/DL Calcium Level 7.8 MG/DL Phosphorus Level 3.4 MG/DL Magnesium Level 2.0 MG/DL Alkaline Phosphatase 91 U/L Aspartate Amino Transf (AST/SGOT) 17 U/L Alanine Aminotransferase (ALT/SGPT) 23 U/L Total Bilirubin 0.3 MG/DL Sodium Level 142 MEQ/L Potassium Level 3.7 MEQ/L Chloride Level 108 MEQ/L Carbon Dioxide Level 26.1 MEQ/L Anion Gap 8 MEQ/L Estimat Glomerular Filtration Rate 105 ML/MIN Urine Color YELLOW Urine Turbidity CLEAR Urine pH 6.0 Urine Specific [place] GREATER THAN 1.050 Urine Protein TRACE mg/dL Urine Glucose (UA) NEG mg/dL Urine Ketones 10 mg/dL Urine Occult Blood NEG Urine Nitrite NEG Urine Bilirubin NEG Urine Urobilinogen LESS THAN 2.0 MG/DL Urine Leukocyte Esterase MOD Urine RBC 5 /hpf Urine WBC 9 /hpf Urine Squamous Epithelial Cells 1 /hpf Urine Transitional Epithelial Cells <1 /hpf Urine Bacteria RARE /hpf Urine Mucus FEW /lpf Microscopic Urinalysis Comment CULTURE INDICATED Last 48 hours Impressions Chest X-Ray 01/07/171902 Signed Impressions: Service Date/Time: January 19:20 - CONCLUSION: Suspected large hiatal hernia. Hadny Dhaliwal MD Chest X-Ray 01/07/17 Signed Impressions: Service Date/Time: January 22:25 - CONCLUSION: NG tube as described above. Handy Dhaliwal MD Chest CT 01/07/17 Signed Impressions: Service Date/Time: January 20:20 - CONCLUSION: 1. Complex hiatal hernia. This predominantly consists of the mid and distal body of the stomach. These areas are flipped superiorly into the hernia sac consistent with a volvulus. 2. Suspected consolidation or atelectasis adjacent to the hernia sac in the left lower lobe. Handy Dhaliwal MD Abdomen/Pelvis CT 01/07/17 Signed Impressions: Service Date/Time: January 20:18 - CONCLUSION: 1. Gastric volvulus with the mid and distal gastric body seen herniating into a hiatal hernia sac. There is gastric dilatation. 2. Gallstones. 3. Multiple hypodensities in the liver likely related to cysts or hemangiomas. 4. Colonic diverticula. Handy Dhaliwal MD Abdomen CT 01/07/17 Signed Impressions: Service Date/Time: January 23:19 - CONCLUSION: 1. There is a large hiatal hernia containing the majority of the stomach. I am not able to appreciate any discrete volvulus. 2. Small hepatic cysts. 3. Cholelithiasis. Kevon Osullivan Jr., MD Impression: Large hiatal hernia with intrathoracic stomach without evidence of volvulus. She still has significant discomfort. Plan: I discussed the patient with Drs. Sharp and Mayte. She will likely undergo upper endoscopy later today and will require surgery at some point in the relatively near future. Clayton Tripathi MD Jan 08, 2017 11:36
--- NOTE | 2017-01-08 11:57 | PD.CONS ---
HPI History of Present Illness This is a 71 year old female with a history of GERD and hiatal hernia, who presented to the emergency room for evaluation of abdominal pain. She was eating garlic knots for dinner yesterday around 5pm. She then had the sudden onset of severe epigastric pain that she describes as constant with associated bloating. The pain was so severe that she came to the emergency room for further evaluation. She did not have any nausea or vomiting initially, but she did have one episode of vomiting after receiving pain medications through the IV. She denies any fevers, chills, constipation. Her last bowel movement was yesterday morning. CT scan abdomen and pelvis (01/07/17)---> revealed gastric volvulus with the mid and distal gastric body seen herniating into a hiatal hernia sac. There is gastric dilatation. Gallstones. Multiple hypodensities in the liver likely related to cysts or hemangiomas and colonic diverticula. An NGT was placed to LIWS. After decompression, her symptoms have improved, although she continues to have some epigastric discomfort. Rpt. CT scan revealed a large hiatal hernia containing the majority of the stomach. I am not able to appreciate any discrete volvulus, small hepatic cysts, cholelithiasis. She has been evaluated by Dr. Tripathi and he is requesting further evaluation with EGD. She reports that her GERD is well controlled with Nexium. She has never had an EGD, but had a colonoscopy 2 years ago. (Britni Torres) PFSH Past Medical History Asthma Hiatal hernia GERD Diverticulosis Hemorrhoids Past Surgical History Appendectomy Bladder lift Cervical fusion Left bunion surgery Colonoscopy 2 years ago Tubal ligation (Britni Torres) Coded Allergies: No Known Allergies (Unverified , 01/07/17) Medications Allergies Coded Allergies Type Severity Reaction Last Updated Verified No Known Allergies 01/07/17 No Active Scripts Medications Dose Route/Sig Max Daily Dose Days Date Category Dose Instructions Nexium (Esomeprazole DR) 20 Mg Capdr 20 Mg PO DAILY 01/07/17 Reported Breo Ellipta Inh (Fluticasone/Vilanterol) 100-25 Mcg/Act Inh 1 Puff INH HS 01/07/17 Reported Use daily at the same time. Family History Father with history of esophageal cancer Social History No tobacco, etoh, or illicit drug use (Britni Torres) Review of Systems Constitutional: DENIES: Fatigue, Fever, Weight loss, Chills Respiratory: DENIES: Cough, Shortness of breath Gastrointestinal: COMPLAINS OF: Abdominal pain, Vomiting (x 1 after pain meds) , Swelling of Abdomen, Heartburn, DENIES: Black stools, Bloody stools, Constipation, Diarrhea, Nausea, Hematemesis Integumentary: DENIES: Abnormal pigmentation Hematologic/lymphatic: DENIES: Bruising Neurologic: DENIES: Headache Psychiatric: DENIES: Confusion (Britni Torres) GI Exam Vitals I&O Vital Signs Date Time Temp Pulse Resp B/P (MAP) Pulse Ox O2 Delivery O2 Flow Rate FiO2 01/08/17 10:00 63 01/08/17 08:00 64 01/08/17 08:00 98 Nasal Cannula 2.00 01/08/17 08:00 97.9 64 20 158/69 (98) 97 01/08/17 07:00 96 Nasal Cannula 2.00 01/08/17 06:00 70 01/08/17 04:00 98.1 59 18 126/60 (82) 97 01/08/17 04:00 59 01/08/17 02:00 76 01/08/17 02:00 97 Nasal Cannula 2.00 01/08/17 02:00 97.8 76 21 144/70 (94) 100 01/08/17 01:50 01/08/17 00:47 76 18 175/79 (111) 91 Room Air 01/07/17 23:03 84 17 128/70 (89) 92 Room Air 01/07/17 21:29 72 20 181/79 (113) 94 Nasal Cannula 2.00 01/07/17 21:15 20 01/07/17 20:35 20 01/07/17 19:46 53 20 172/80 (110) 96 Nasal Cannula 2.00 01/07/17 19:37 96 Nasal Cannula 2.00 01/07/17 18:45 97.9 80 16 199/91 (127) 95 I/O 01/07/17 01/07/17 01/07/17 01/08/17 01/08/17 01/08/17 07:00 15:00 23:00 07:00 15:00 23:00 Intake Total 957 ml Output Total 645 ml Balance 312 ml Intake IV Total 957 ml Output Gastric Drainage Total 645 ml # Voids 1 # Bowel Movements 0 Laboratory Test 01/07/17 19:30 01/07/17 21:45 01/08/17 01:40 01/08/17 04:07 White Blood Count 9.5 TH/MM3 6.3 TH/MM3 Red Blood Count 4.54 MIL/MM3 4.20 MIL/MM3 Hemoglobin 14.7 GM/DL 13.1 GM/DL Hematocrit 42.6 % 39.4 % Mean Corpuscular Volume 93.9 FL 93.9 FL Mean Corpuscular Hemoglobin 32.4 PG 31.3 PG Mean Corpuscular Hemoglobin Concent 34.5 % 33.3 % Red Cell Distribution Width 12.4 % 12.5 % Platelet Count 334 TH/MM3 311 TH/MM3 Mean Platelet Volume 7.6 FL 7.0 FL Neutrophils (%) (Auto) 69.2 % 75.9 % Lymphocytes (%) (Auto) 22.6 % 17.8 % Monocytes (%) (Auto) 6.1 % 6.1 % Eosinophils (%) (Auto) 1.6 % 0.1 % Basophils (%) (Auto) 0.5 % 0.1 % Neutrophils # (Auto) 6.6 TH/MM3 4.8 TH/MM3 Lymphocytes # (Auto) 2.2 TH/MM3 1.1 TH/MM3 Monocytes # (Auto) 0.6 TH/MM3 0.4 TH/MM3 Eosinophils # (Auto) 0.2 TH/MM3 0.0 TH/MM3 Basophils # (Auto) 0.1 TH/MM3 0.0 TH/MM3 CBC Comment DIFF FINAL DIFF FINAL Differential Comment Prothrombin Time 10.2 SEC Prothromb Time International Ratio 0.9 RATIO Activated Partial Thromboplast Time 24.2 SEC 22.0 SEC Blood Urea Nitrogen 10 MG/DL Creatinine 0.78 MG/DL Random Glucose 114 MG/DL Total Protein 7.4 GM/DL Albumin 3.9 GM/DL Calcium Level 9.0 MG/DL Alkaline Phosphatase 109 U/L Aspartate Amino Transf (AST/SGOT) 34 U/L Alanine Aminotransferase (ALT/SGPT) 28 U/L Total Bilirubin 0.3 MG/DL Sodium Level 138 MEQ/L Potassium Level 3.9 MEQ/L Chloride Level 103 MEQ/L Carbon Dioxide Level 27.6 MEQ/L Anion Gap 7 MEQ/L Estimat Glomerular Filtration Rate 73 ML/MIN Lactic Acid Level 1.6 mmol/L Total Creatine Kinase 121 U/L Troponin I LESS THAN 0.02 NG/ML Lipase 254 U/L Nasal Screen MRSA (PCR) MRSA NOT DETECTED Test 01/08/17 04:23 01/08/17 06:20 Blood Urea Nitrogen 9 MG/DL Creatinine 0.57 MG/DL Random Glucose 125 MG/DL Total Protein 6.1 GM/DL Albumin 3.1 GM/DL Calcium Level 7.8 MG/DL Phosphorus Level 3.4 MG/DL Magnesium Level 2.0 MG/DL Alkaline Phosphatase 91 U/L Aspartate Amino Transf (AST/SGOT) 17 U/L Alanine Aminotransferase (ALT/SGPT) 23 U/L Total Bilirubin 0.3 MG/DL Sodium Level 142 MEQ/L Potassium Level 3.7 MEQ/L Chloride Level 108 MEQ/L Carbon Dioxide Level 26.1 MEQ/L Anion Gap 8 MEQ/L Estimat Glomerular Filtration Rate 105 ML/MIN Urine Color YELLOW Urine Turbidity CLEAR Urine pH 6.0 Urine Specific [place] GREATER THAN 1.050 Urine Protein TRACE mg/dL Urine Glucose (UA) NEG mg/dL Urine Ketones 10 mg/dL Urine Occult Blood NEG Urine Nitrite NEG Urine Bilirubin NEG Urine Urobilinogen LESS THAN 2.0 MG/DL Urine Leukocyte Esterase MOD Urine RBC 5 /hpf Urine WBC 9 /hpf Urine Squamous Epithelial Cells 1 /hpf Urine Transitional Epithelial Cells <1 /hpf Urine Bacteria RARE /hpf Urine Mucus FEW /lpf Microscopic Urinalysis Comment CULTURE INDICATED Date/Time Source Procedure Growth Status 01/08/17 06:20 Urine Random Urine Urine Culture Pending Received Physical Examination HEENT: Pupils round and reactive to light; normocephalic; atraumatic; no jaundice. Throat is clear. NECK: Neck is supple, no JVD, no lymphadenopathy. CHEST: Chest is clear to auscultation and percussion. CARDIAC: Regular rate and rhythm with no murmur gallop or rubs. ABDOMEN: Soft, nondistended, nontender; no hepatosplenomegaly; bowel sounds are present in all four quadrants. EXTREMITIES: No clubbing, cyanosis, or edema. SKIN: Normal; no rash; no jaundice. COURT RECORDING MONITOR: No focal deficits; alert and oriented times three. (Torres,Britni Vibha TRUCK MECHANIC) Assessment and Plan Plan ASSESSMENT: - Abdominal pain with abnormal imaging with large hiatal hernia, ? gastric volvulus. Pt has known HH and GERD, controlled with Nexium. She had sudden onset of severe epigastric pressure like pain/bloating while eating garlic knots yesterday. CT scan abdomen and pelvis (01/07/17)---> revealed gastric volvulus with the mid and distal gastric body seen herniating into a hiatal hernia sac. THere is gastric dilatation. Gallstones. Multiple hypodensities in the liver likely related to cysts or hemangiomas and colonic diverticula. NGT to LIWS. Rpt. CT scan revealed a large hiatal hernia containing the majority of the stomach. I am not able to appreciate any discrete volvulus, small hepatic cysts, cholelithiasis. S/P evaluation by Dr. Tripathi and he is requesting further evaluation with EGD. Clinically, her pain has improved after decompression, but not completely resolved. Will plan for EGD this afternoon. NPO. NGT to LIWS. PPI - Large HH. GS following - GERD. On Nexium at home. PPI PLAN: - Plan for egd this afternoon - Obtain consents - NPO - NGT to LIWS - PPI - Monitor labs - GS following - Pt seen and examined by Dr. Hu and myself and this note is written on her behalf (Britni Torres) Physician Comments seen, examined agree with above (Devi Hu MD) Britni Torres Jan 08, 2017 11:57 Devi Hu MD Jan 08, 2017 19:13
[2017-01-08] MEDS ORDERED: PROPOFOL 200 MG/20 ML AMP IV ONE (12:00)
[2017-01-08] MEDS ORDERED: LIDOCAINE HCL 1% PF 5 ML AMPULE OTHER ONE (12:00)
--- NOTE | 2017-01-08 13:04 | EKG ---
Date Performed: 01/07/2017 Time Performed: 19:15:06 PTAGE: 71 years EKG: Sinus rhythm NORMAL ECG INTERPRETATION BASED ON A DEFAULT AGE OF 41 YEARS NO PREVIOUS TRACING DOCTOR: Sohan Camarillo Interpretating Date/Time 01/08/2017 13:02:37
[2017-01-08] MEDS ORDERED: DO NOT ADM ANY ANTICOAGULANT DRUGS PRN (13:48)
--- NOTE | 2017-01-08 13:52 | GIPROC ---
[facility] [address] [facility]. [facility] [place], [id number] EGD PROCEDURE REPORT EXAM DATE: 01/08/2017 PATIENT NAME: Sofia Rosales MR #: [id number] BIRTHDATE: 1945 ATTENDING: Devi Hu MD ORDER #: [id number] SUPERVISOR [employer] SALES: Juana Mckeon and Shereen Hood STATUS: inpatient INDICATIONS: The patient is a 71 yr old female here for an EGD due to hiatal hernia possible gastric volvulus PROCEDURE PERFORMED: EGD w/ biopsy MEDICATIONS: None and Per Anesthesia. TOPICAL ANESTHETIC: none CONSENT: The patient understands the risks and benefits of the procedure and understands that these risks include, but are not limited to: sedation, allergic reaction, infection, perforation and/or bleeding. Alternative means of evaluation and treatment include, among others: physical exam, x-rays, and/or surgical intervention. The patient elects to proceed with this endoscopic procedure. medical equipment was checked for proper function. Hand hygiene and appropriate measures for infection prevention was taken. After the risks, benefits and alternatives of the procedure were thoroughly explained, Informed consent was verified, confirmed and timeout was successfully executed by the treatment team. The patient was anesthetized with topical anesthesia and the Pentax EG-[id number] endoscope was introduced through the mouth and advanced to the second portion of the duodenum. Retroflexed views revealed a hiatal hernia The gastroscope was then slowly withdrawn and removed. Gastritis antrum large hiatal hernia NGT in dital esophagus-advanced in stomach fundus. ADVERSE EVENTS: There were no complications. IMPRESSIONS: 1. Gastritis antrum large hiatal hernia NGT in dital esophagus-advanced in stomach fundus 2. Retroflexed views revealed a hiatal hernia RECOMMENDATIONS: 1. Await biopsy results. Biopsy results will not be ready for 7-10 days. If you don't hear from us in two weeks, call our office for biopsy results. 2. Anti-reflux regimen 3. Continue PPI 4. NGT plan as per surgery PATIENT CONDITION: stable DISPOSITION: Inpatient REPEAT EXAM: EGD pending biopsy results Devi Hu MD eSigned: Devi Hu MD 01/08/2017 1:52 PM cc: PATIENT NAME: Sofia Rosales MR#: [id number]
--- NOTE | 2017-01-08 16:40 | HHI.CCPN ---
Subjective Remarks/Hospital Course 71-year-old female with no significant past medical history presents with epigastric abdominal pain and lower chest pain that started at 5 PM. The patient was eating garlic knots at approximately 5 PM when she developed epigastric abdominal pain and lower chest pain that radiates to the posterior aspect of the neck, left shoulder blade, and left arm. She also complained of shortness of breath but denies any nausea, vomiting, or diaphoresis. The patient denies any known history of coronary artery disease, hypertension, hyperlipidemia, tobacco use, or previous stress test. CT of the chest abdomen and pelvis revealed large hiatal hernia with gastric volvulus. The NG tube was placed on a low wall suction for stomach decompression with significant relief of symptoms. SUBJ 01/08: Sitting up in the bed. Moderate distress. Status post EGD. Apparently showed big hiatal hernia, esophagitis, gastritis. D/W Dr. hu- no evidence of Volvulus but large hiatal hernia Objective Vital Signs Date Time Temp Pulse Resp B/P (MAP) Pulse Ox O2 Delivery O2 Flow Rate FiO2 01/08/17 14:15 79 14 125/63 (83) 94 01/08/17 14:00 Room Air 01/08/17 13:48 98.2 01/08/17 08:00 2.00 Intake and Output 01/08/17 01/08/17 01/09/17 08:00 16:00 00:00 Intake Total 957 ml 300 ml Output Total 145 ml Balance 812 ml 300 ml Result Diagram: 01/08/17 0407 01/08/17 0423 Imaging Last 24 hours Impressions Chest X-Ray 01/07/17 457 Signed Impressions: Service Date/Time: January 19:20 - CONCLUSION: Suspected large hiatal hernia. Handy Dhaliwal MD Objective Remarks GENERAL: Well-nourished, well-developed patient. SKIN: Warm and dry. HEAD: Normocephalic. EYES: No scleral icterus. No injection or drainage. NECK: Supple, trachea midline. No JVD or lymphadenopathy. CARDIOVASCULAR: Regular rate and rhythm without murmurs, gallops, or rubs. RESPIRATORY: Breath sounds equal bilaterally. No accessory muscle use. GASTROINTESTINAL: Abdomen soft, epigastric and bilateral upper quadrant tenderness MUSCULOSKELETAL: No cyanosis, or edema. BACK: Nontender without obvious deformity. NEURO EXAM: Awake alert oriented no focal deficits. Good muscle strength bilaterally A/P Assessment and Plan Hiatal hernia with gastric volvulus - Nothing by mouth - NG tube to low intermittent suction to decompress GI tract - Surgical evaluation Dr. Tripathi - ICU monitoring - EGD by Dr. Hu- NO evidence of volvulus, but large hiatal hernia - IV hydration Hypertension - Hydralazine when necessary to keep SBP less than 160 History of asthma - DuoNeb's when necessary Nausea vomiting - Due to above - Gentle IV hydration - Nothing by mouth, until cleared - Zofran when necessary DVT GI prophylaxis - Protonix - Teds SCDs - Subcutaneous heparin Critical Care: Level 3 Noreen Murrell MD Jan 08, 2017 16:40
[2017-01-09] VITALS (8 sets, daily range): BP systolic 128–187; BP diastolic 68–90; PULSE 72–89; RESP 16–26; TEMP 97.7–98.8; O2SAT 92–98
[2017-01-09] MEDS: CHLORHEXIDINE GLUCONATE 2 % 1 PACK (2 CLOTHS) TOP SCH (02:32)
[2017-01-09] MEDS: HEPARIN SODIUM - SQ 10,000 UNITS/ML VIAL SQ SCH ×3 (05:56→22:47)
[2017-01-09] MEDS: RESP: ALBUTEROL 2.5 MG/IPRATROPIUM 0.5 MG NEB (PRN) NEB (06:01)
[2017-01-09 06:45] LABS: AUTOMATED NEUTROPHIL # 5.5 TH/MM3 (1.8-7.7); BASOPHIL % 0.3 % (0.0-2.0); EOSINOPHIL # 0.1 TH/MM3 (0-0.4); HEMATOCRIT 41.2 % (35.0-46.0); HEMO FLAGS DIFF FINAL; LYMPH % 17.6 % (9.0-44.0); LYMPHOCYTE # 1.3 TH/MM3 (1.0-4.8); MEAN CELL VOLUME 93.4 FL (80.0-100.0); MEAN CORPUSCULAR HEMOGLOBIN 31.2 PG (27.0-34.0); MEAN CORPUSCULAR HGB CONC 33.4 % (32.0-36.0); MONO % 7.9 % (0.0-8.0); NEUT % 73.2 % (16.0-70.0); PLATELET COUNT 323 TH/MM3 (150-450); RED BLOOD COUNT 4.41 MIL/MM3 (4.00-5.30); RED CELL DISTRIBUTION WIDTH 12.9 % (11.6-17.2); WHITE BLOOD COUNT 7.6 TH/MM3 (4.0-11.0)
[2017-01-09 07:10] LABS: BICARBONATE 25.9 MEQ/L (21.0-32.0); POTASSIUM 3.3 MEQ/L (3.5-5.1)
[2017-01-09] MEDS: RESP: ALBUTEROL 2.5 MG/IPRATROPIUM 0.5 MG NEB (SCH) NEB ×4 (08:00→20:00)
[2017-01-09] MEDS: SODIUM CHLORIDE 0.9% FLUSH 10 ML FLUSH IV FLUSH SCH ×2 (09:00→22:48)
[2017-01-09] MEDS: DOCUSATE SODIUM 50 MG/SENNA 8.6 MG TAB PO SCH ×3 (09:00→22:46)
[2017-01-09] MEDS: PANTOPRAZOLE SODIUM 40 MG VIAL IV PUSH SCH (09:27)
[2017-01-09] MEDS: D5-LR + KCL 20 MEQ INJ 1,000 ML IV SCH (09:34)
--- NOTE | 2017-01-09 11:32 | HHI.PR ---
Subjective Remarks feels better. Objective Vitals heart reg lung cta abd s/nt ext no edema ngt to liws Vital Signs Date Time Temp Pulse Resp B/P (MAP) Pulse Ox O2 Delivery O2 Flow Rate FiO2 01/09/17 09:30 Nasal Cannula 2.00 01/09/17 08:00 98.1 87 16 128/68 (88) 96 01/09/17 06:05 95 Nasal Cannula 2.00 01/09/17 04:00 97.7 89 26 143/69 (93) 92 01/09/17 02:41 95 Nasal Cannula 2.00 01/09/17 01:38 140/90 (107) 01/09/17 00:17 97.9 81 18 187/79 (115) 95 01/08/17 20:00 98.4 61 19 159/58 (91) 96 01/08/17 20:00 77 01/08/17 19:00 96 Nasal Cannula 2.00 01/08/17 14:15 79 14 125/63 (83) 94 01/08/17 14:00 77 15 142/67 (92) 95 Room Air 01/08/17 13:48 98.2 83 13 134/62 (86) 93 Result Diagram: 01/09/1715 01/09/1715 A/P Problem List: (1) Hiatal hernia ICD Codes: K44.9 - Diaphragmatic hernia without obstruction or gangrene Status: Acute Plan: 1. Pt has large HH, esophagitis/gastritis. She presented with acute abdomen pain and concern for gastric volvulus. NGT was placed. currently she feels much better. discussed with gen surg. ok to clamp ngt and try liquids ambulate cont ivf and add kcl dvt prophylaxis iv ppi. (2) Asthma ICD Codes: J45.909 - Unspecified asthma, uncomplicated Status: Chronic Plan: cont bronchodilators Oscar Huynh MD Jan 09, 2017 11:32
[2017-01-09] MEDS: NS + KCL 20 MEQ INJ 1,000 ML IV SCH ×2 (12:52→23:55)
--- NOTE | 2017-01-09 15:05 | HHI.GIFU ---
Subjective Remarks Pt resting in bed, did trial of liquids with NGT clamped, denies abd pain, nausea, vomiting. SAys she feels much better. (America Walls) Objective Vitals I&O Vital Signs Date Time Temp Pulse Resp B/P (MAP) Pulse Ox O2 Delivery O2 Flow Rate FiO2 01/09/17 12:00 98.4 72 16 131/76 (94) 98 01/09/17 09:30 Nasal Cannula 2.00 01/09/17 08:00 98.1 87 16 128/68 (88) 96 01/09/17 06:05 95 Nasal Cannula 2.00 01/09/17 04:00 97.7 89 26 143/69 (93) 92 01/09/17 02:41 95 Nasal Cannula 2.00 01/09/17 01:38 140/90 (107) 01/09/17 00:17 97.9 81 18 187/79 (115) 95 01/08/17 20:00 98.4 61 19 159/58 (91) 96 01/08/17 20:00 77 01/08/17 19:00 96 Nasal Cannula 2.00 I/O 01/08/17 01/08/17 01/08/17 01/09/17 01/09/17 01/09/17 07:00 15:00 23:00 07:00 15:00 23:00 Intake Total 957 ml 300 ml 427 ml 480 ml Output Total 645 ml 300 ml Balance 312 ml 300 ml -300 ml 427 ml 480 ml Intake Oral 480 ml IV Total 957 ml 427 ml Other 300 ml Output Gastric Drainage Total 645 ml 300 ml # Voids 1 1 1 2 # Bowel Movements 0 0 1 Laboratory Laboratory Tests Test 01/09/17 05:15 White Blood Count 7.6 Red Blood Count 4.41 Hemoglobin 13.8 Hematocrit 41.2 Mean Corpuscular Volume 93.4 Mean Corpuscular Hemoglobin 31.2 Mean Corpuscular Hemoglobin Concent 33.4 Red Cell Distribution Width 12.9 Platelet Count 323 Mean Platelet Volume 7.6 Neutrophils (%) (Auto) 73.2 Lymphocytes (%) (Auto) 17.6 Monocytes (%) (Auto) 7.9 Eosinophils (%) (Auto) 1.0 Basophils (%) (Auto) 0.3 Neutrophils # (Auto) 5.5 Lymphocytes # (Auto) 1.3 Monocytes # (Auto) 0.6 Eosinophils # (Auto) 0.1 Basophils # (Auto) 0.0 CBC Comment DIFF FINAL Differential Comment Blood Urea Nitrogen 8 Creatinine 0.54 Random Glucose 95 Calcium Level 8.2 Sodium Level 142 Potassium Level 3.3 Chloride Level 107 Carbon Dioxide Level 25.9 Anion Gap 9 Estimat Glomerular Filtration Rate 112 Date/Time Source Procedure Growth Status 01/08/17 06:20 Urine Random Urine Urine Culture - Final 50-100,000 CFU/ML MIXED CURTIS... Complete Imaging Last Impressions Chest X-Ray 01/07/171902 Signed Impressions: Service Date/Time: January 19:20 - CONCLUSION: Suspected large hiatal hernia. Handy Dhaliwal MD Chest CT 01/07/17 0000 Signed Impressions: Service Date/Time: January 20:20 - CONCLUSION: 1. Complex hiatal hernia. This predominantly consists of the mid and distal body of the stomach. These areas are flipped superiorly into the hernia sac consistent with a volvulus. 2. Suspected consolidation or atelectasis adjacent to the hernia sac in the left lower lobe. Handy Dhaliwal MD Abdomen/Pelvis CT 01/07/17 Signed Impressions: Service Date/Time: January 20:18 - CONCLUSION: 1. Gastric volvulus with the mid and distal gastric body seen herniating into a hiatal hernia sac. There is gastric dilatation. 2. Gallstones. 3. Multiple hypodensities in the liver likely related to cysts or hemangiomas. 4. Colonic diverticula. Handy Dhaliwal MD Abdomen CT 01/07/17 Signed Impressions: Service Date/Time: January 23:19 - CONCLUSION: 1. There is a large hiatal hernia containing the majority of the stomach. I am not able to appreciate any discrete volvulus. 2. Small hepatic cysts. 3. Cholelithiasis. Kevon Osullivan Jr., MD Physical Exam HEENT: PERRL; atraumatic; no jaundice. NGT clamped CHEST: CTA CARDIAC: RRR ABDOMEN: Soft, nondistended, nontender; no hepatosplenomegaly; bowel sounds are present in all four quadrants. EXTREMITIES: No clubbing, cyanosis, or edema. SKIN: Normal; no rash; no jaundice. FINANCIAL COMPLIANCE EXAMINER: No focal deficits; alert and oriented times three. (America Walls) Assessment and Plan Plan ASSESSMENT: - Abdominal pain with abnormal imaging with large hiatal hernia, ? gastric volvulus. Pt has known HH and GERD, controlled with Nexium. She had sudden onset of severe epigastric pressure like pain/bloating while eating garlic knots yesterday. CT scan abdomen and pelvis (01/07/17)---> revealed gastric volvulus with the mid and distal gastric body seen herniating into a hiatal hernia sac. THere is gastric dilatation. Gallstones. Multiple hypodensities in the liver likely related to cysts or hemangiomas and colonic diverticula. NGT to LIWS. Rpt. CT scan revealed a large hiatal hernia containing the majority of the stomach. I am not able to appreciate any discrete volvulus, small hepatic cysts, cholelithiasis. S/P EGD found large hiatal hernia, advanced NGT , gastritis. PPI pt w/o pain, nausea today, tolerated clears while NGT clamped. - Large HH. GS following - GERD. On Nexium at home. PPI PLAN: - tolerating liquids & clamped NGT - diet per GS - PPI - Monitor labs - GS following - Pt seen and examined by Dr. Hu and myself and this note is written on her behalf (America Walls) Physician Comments seen, examined agree with above ok to dc home from gi point ppi soft diet fu with surgery gi will sign off call us as needed (Devi Hu MD) America Walls Jan 09, 2017 15:05 Devi Hu MD Jan 09, 2017 15:57
[2017-01-10] VITALS: BP 167/72; PULSE 68; RESP 20; TEMP 98.2; O2SAT 90
[2017-01-10] MEDS: CHLORHEXIDINE GLUCONATE 2 % 1 PACK (2 CLOTHS) TOP SCH (03:56)
[2017-01-10 04:00] VITALS: BP 137/68; PULSE 71; TEMP 98.2; O2SAT 90
[2017-01-10] MEDS: RESP: ALBUTEROL 2.5 MG/IPRATROPIUM 0.5 MG NEB (SCH) NEB ×3 (04:00→08:03)
[2017-01-10] MEDS: HEPARIN SODIUM - SQ 10,000 UNITS/ML VIAL SQ SCH (05:23)
[2017-01-10] MEDS: RESP: ALBUTEROL 2.5 MG/IPRATROPIUM 0.5 MG NEB (PRN) NEB (05:46)
[2017-01-10 08:03] VITALS: O2SAT 95
[2017-01-10] MEDS: DOCUSATE SODIUM 50 MG/SENNA 8.6 MG TAB PO SCH (09:00)
[2017-01-10] MEDS: SODIUM CHLORIDE 0.9% FLUSH 10 ML FLUSH IV FLUSH SCH (09:00)
[2017-01-10 09:08] LABS: BICARBONATE 27.8 MEQ/L (21.0-32.0); POTASSIUM 3.3 MEQ/L (3.5-5.1)
--- NOTE | 2017-01-10 09:19 | HHI.DCPOC ---
Discharge Care Plan Diagnosis: (1) Acute gastric volvulus (2) Hiatal hernia (3) Asthma Goals to Promote Your Health - Followup with Dr. Sharp in 1-2 weeks, call for an appt - Followup with your PCP at [facility] in 1 week, call for an appt. Directions to Meet Your Goals Take your medications as prescribed Follow your dietary instruction Follow activity as directed Keep your appointments as scheduled Take your immunizations and boosters as scheduled If your symptoms worsen call your PCP, if no PCP go to Urgent Care Center or Emergency Room Smoking is Dangerous to Your Health. Avoid second hand smoke Call the 24-hour hour crisis hotline for domestic abuse at Janessa Stone Jan 10, 2017 09:19
--- NOTE | 2017-01-10 09:28 | HHI.DS ---
Discharge Summary Admission Date Jan 07, 2017 at 22:21 Discharge Date: Jan 10, 2017 Admitting Diagnosis gastric volvulus, large hiatal hernia (1) Hiatal hernia Diagnosis: Principal ICD Codes: K44.9 - Diaphragmatic hernia without obstruction or gangrene Status: Acute (2) Acute gastric volvulus Diagnosis: Secondary ICD Codes: K31.89 - Other diseases of stomach and duodenum Status: Acute (3) Asthma Diagnosis: Secondary ICD Codes: J45.909 - Unspecified asthma, uncomplicated Status: Chronic Consultants Dr. Vinicio Sharp - General Surgery Dr. Devi Hu - GI Dr. Alexandru Zazueta - Crook Operator Brief History Pt is a 71-year-old female with asthma who presented with epigastric abdominal pain and lower chest pain that started at 5 PM. The patient was eating garlic knots at approximately 5 PM when she developed epigastric abdominal pain and lower chest pain that radiates to the posterior aspect of the neck, left shoulder blade, and left arm. She also complained of shortness of breath but denies any nausea, vomiting, or diaphoresis. The patient denies any known history of coronary artery disease, hypertension, hyperlipidemia, tobacco use, or previous stress test. CT of the chest abdomen and pelvis revealed large hiatal hernia with gastric volvulus. The NG tube was placed on a low wall suction for stomach decompression with significant relief of symptoms. CBC/BMP: 01/09/17 0515 01/10/17 0720 Significant Findings Laboratory Tests Test 01/07/17 19:30 01/07/17 21:45 01/08/17 01:40 01/08/17 04:07 Activated Partial Thromboplast Time 24.2 SEC (24.3-30.1) 22.0 SEC (24.3-30.1) Random Glucose 114 MG/DL (74-106) Estimat Glomerular Filtration Rate 73 ML/MIN (>89) Troponin I LESS THAN 0.02 NG/ML Neutrophils (%) (Auto) 75.9 % (16.0-70.0) Test 01/08/17 04:23 01/08/17 06:20 01/09/17 05:15 01/10/17 07:20 Random Glucose 125 MG/DL (74-106) Total Protein 6.1 GM/DL (6.4-8.2) Albumin 3.1 GM/DL (3.4-5.0) Calcium Level 7.8 MG/DL (8.5-10.1) 8.2 MG/DL (8.5-10.1) Chloride Level 108 MEQ/L (98-107) Urine Specific [place] GREATER THAN 1.050 Urine Ketones 10 mg/dL (NEG) Urine Leukocyte Esterase MOD (NEG) Urine RBC 5 /hpf (0-3) Urine WBC 9 /hpf (0-5) Urine Bacteria RARE /hpf (NONE) Urine Mucus FEW /lpf (OCC) Neutrophils (%) (Auto) 73.2 % (16.0-70.0) Potassium Level 3.3 MEQ/L (3.5-5.1) 3.3 MEQ/L (3.5-5.1) Estimat Glomerular Filtration Rate 84 ML/MIN (>89) Imaging Last Impressions Chest X-Ray 01/07/171902 Signed Impressions: Service Date/Time: January 19:20 - CONCLUSION: Suspected large hiatal hernia. Handy Dhaliwal MD Chest CT 01/07/17 0000 Signed Impressions: Service Date/Time: January 20:20 - CONCLUSION: 1. Complex hiatal hernia. This predominantly consists of the mid and distal body of the stomach. These areas are flipped superiorly into the hernia sac consistent with a volvulus. 2. Suspected consolidation or atelectasis adjacent to the hernia sac in the left lower lobe. Handy Dhaliwal MD Abdomen/Pelvis CT 01/07/17 Signed Impressions: Service Date/Time: January 20:18 - CONCLUSION: 1. Gastric volvulus with the mid and distal gastric body seen herniating into a hiatal hernia sac. There is gastric dilatation. 2. Gallstones. 3. Multiple hypodensities in the liver likely related to cysts or hemangiomas. 4. Colonic diverticula. Handy Dhaliwal MD Abdomen CT 01/07/17 0000 Signed Impressions: Service Date/Time: January 23:19 - CONCLUSION: 1. There is a large hiatal hernia containing the majority of the stomach. I am not able to appreciate any discrete volvulus. 2. Small hepatic cysts. 3. Cholelithiasis. Kevon Osullivan Jr., MD Hospital Course Pt is a 71 y/o female with asthma and GERD who presented to the ED on 01/07/17 with complaints of epigastric pain/lower chest pain and SOB that began suddenly while eating garlic knots. She had CT scan abd/pelvis (01/07/17) which revealed gastric volvulus with the mid and distal gastric body seen herniating into a hiatal hernia sac, with gastric dilatation, gallstones and multiple hypodensities in the liver likely related to cysts or hemangiomas and colonic diverticula. She was admitted to ICU and had NGT placed to [facility]. Repeat CT scan revealed a large hiatal hernia containing the majority of the stomach, unable to appreciate any discrete volvulus, small hepatic cysts, cholelithiasis. GI and General; Surgery were consulted and pt underwent EGD (01/08/17) which noted a large hiatal hernia, the NGT was advanced, and gastritis. Pt improved symptomatically with conservative measures. The NGT was clamped and she was able to tolerated liquids. The NGT was removed on 01/09 and she has been tolerating a soft diet without any pain, nausea or vomiting. Pt is stable for discharge on 01/10/17. She will continue on her PPI She will need followup with Dr. Sharp within 1-2 week as she will likely need surgical intervention for the large hiatal hernia. Pt was instructed to drink at least 2 Ensures per day and continue on a soft diet She will need to followup with her PCP within 1 week as well. Pt Condition on Discharge: Stable Discharge Disposition: Discharge Home Discharge Instructions DIET: Follow Instructions for: Heart Healthy Diet, Soft Diet Activities you can perform: Regular-No Restrictions Follow up Referrals: PCP Follow-up - 1 Week @ [facility] - 10 Days with Vinicio Sharp MD Continued Medications: Esomeprazole DR (Nexium) 20 Mg Capdr 20 MG PO DAILY, CAP 0 Refills Fluticasone-Vilanterol Inh (Breo Ellipta Inh) 100-25 Mcg/Act Inh 1 PUFF INH HS, #1 INHALER 0 Refills Use daily at the same time. Janessa Stone Jan 10, 2017 09:28 Oscar Huynh MD Jan 10, 2017 09:47
[2017-01-11] MEDS ORDERED: PANTOPRAZOLE SOD 40 MG DELAYED RELEASE TAB PO SCH (09:00)
== END 2017-01-10 11:20 | disposition home or self-care (01) | DRG 392 ==
LOC: NEPE 18:40 → NEDA 22:21 → N03B 01-08 01:29 → N05A 01-08 22:05
PROVIDERS: ADMIT Internal Medicine Critical Care Medicine; ATTEND Internal Medicine Critical Care Medicine
PROC: 0DB68ZX Excision of Stomach, Via Natural or Artificial Opening Endoscopic, Diagnostic (ICD-10-PCS; principal; 2017-01-08 11:30)
DX: K31.89 Other diseases of stomach and duodenum (principal); K76.89 Other specified diseases of liver; I10 Essential (primary) hypertension; K44.9 Diaphragmatic hernia without obstruction or gangrene; J45.909 Unspecified asthma, uncomplicated; K80.20 Calculus of gallbladder without cholecystitis without obstruction; K57.30 Diverticulosis of large intestine without perforation or abscess without bleeding; K21.0 Gastro-esophageal reflux disease with esophagitis; K29.70 Gastritis, unspecified, without bleeding
CPT/HCPCS: 43753; 71010; 71260; 74150; 74177; 80048; 80053; 81001; 82550; 83605; 83690; 83735; 84100; 84484; 85025; 85610; 85730; 86850; 86900; 86901; 87086; 87641; 88305; 93005; 94640; 94664; 96361; 96374; 96375; 96376; C9113; J1644; J2270; J2405; J3480; J7030; Q9963; Q9967

== ENCOUNTER 2017-02-24 09:31 | Inpatient (IN) | payer MEDICARE ==
[~2017-02-24] VITALS: Ht 154.9 cm; Wt 67.1 kg
[~2017-02-24 09:31] MED LIST: CALC1TAB87 PO; FLUT1INH INH; MULT-65 PO; NEXI20CA PO
[2017-02-24] MEDS ORDERED: ceFAZolin 2 GM PREMIX 50 ML IV SCH (10:45)
[2017-02-24] MEDS ORDERED: ACETAMINOPHEN 1000 MG/100 ML 100 ML IV SCH (10:45)
[2017-02-24] MEDS ORDERED: CHLORHEXIDINE GLUCONATE 2 % 1 PACK (2 CLOTHS) TOPICAL PRN (10:45)
[2017-02-24] MEDS ORDERED: metroNIDAZOLE 500 MG INJ 100 ML IV SCH (10:45)
[2017-02-24] MEDS ORDERED: POVIDONE IODINE 5% (ANTISEPSIS KIT) 4 APPLICATIONS EACH NARE PRN (10:45)
[2017-02-24] MEDS ORDERED: ONDANSETRON HCL 4 MG/2 ML VIAL IV PUSH SCH (10:45)
[2017-02-24] MEDS ORDERED: LACTATED RINGER'S 1000 ML IV PRN (10:45)
[2017-02-24] MEDS ORDERED: METOPROLOL TARTRATE 25 MG TAB PO PRN (10:45)
[2017-02-24] MEDS ORDERED: SODIUM CHLORID 0.9% 500 ML IV PRN (10:45)
[2017-02-24] MEDS ORDERED: HYDROmorphone HCL PF 2 MG/ML VIAL ONE (12:57)
[2017-02-24] MEDS ORDERED: FAMOTIDINE 20 MG/2 ML VIAL ONE (13:14)
[2017-02-24] MEDS ORDERED: BUPIVACAINE/EPINEPHRINE 0.25% PF 30 ML VIAL ONE (13:26)
[2017-02-24] MEDS ORDERED: ceFAZolin INJ 1,000 MG VIAL ONE (16:58)
[2017-02-24] MEDS ORDERED: NALOXONE HCL 0.4 MG/ML AMP IV PUSH PRN (17:30)
[2017-02-24] MEDS ORDERED: Post-op Orders (for Pharmacy) MISC XX ONE (17:30)
[2017-02-24] MEDS ORDERED: MORPHINE SULFATE 30 MG/30 ML PCA IV SCH (17:30)
[2017-02-24] MEDS ORDERED: MAGNESIUM HYDROXIDE SUSP 30 ML CUP PO PRN (17:30)
[2017-02-24] MEDS ORDERED: METOCLOPRAMIDE HCL 10 MG/2 ML VIAL IVS PRN (17:30)
[2017-02-24] MEDS ORDERED: ONDANSETRON HCL 4 MG/2 ML VIAL IV PUSH PRN (17:30)
[2017-02-24] MEDS ORDERED: SODIUM CHLORIDE 0.9% FLUSH 10 ML FLUSH IV FLUSH PRN (17:30)
[2017-02-24] MEDS ORDERED: DO NOT ADM ANY ANTICOAGULANT DRUGS PRN (17:55)
[2017-02-24] MEDS: SODIUM CHLOR 0.9% 1000 ML INJ 1,000 ML IV SCH (17:57)
[2017-02-24 20:00] VITALS: BP 128/62; PULSE 64; RESP 18; TEMP 95.8; O2SAT 95
[2017-02-24] MEDS: metroNIDAZOLE 500 MG INJ 100 ML IV SCH (21:26)
[2017-02-24] MEDS: SODIUM CHLORIDE 0.9% FLUSH 10 ML FLUSH IV FLUSH SCH (21:27)
[2017-02-24] MEDS: PCA - TOTAL MG MORPHINE DELIVERED PER SHIFT SCH (22:30)
[2017-02-24] MEDS: DOCUSATE SODIUM 100 MG CAP PO SCH (22:53)
[2017-02-25 00:25] VITALS: BP 130/63; PULSE 68; RESP 18; TEMP 96.4; O2SAT 96
[2017-02-25] MEDS: metroNIDAZOLE 500 MG INJ 100 ML IV SCH (04:19)
[2017-02-25] MEDS: SODIUM CHLOR 0.9% 1000 ML INJ 1,000 ML IV SCH (04:20)
[2017-02-25 04:46] VITALS: BP 124/61; PULSE 61; RESP 18; TEMP 97; O2SAT 97
[2017-02-25] MEDS: PCA - TOTAL MG MORPHINE DELIVERED PER SHIFT SCH (06:02)
--- NOTE | 2017-02-25 07:33 | HHI.PR ---
Subjective Subjective Notes pt comfortable no cp no sob Objective Vitals/I&O Vital Signs Date Time Temp Pulse Resp B/P (MAP) Pulse Ox O2 Delivery O2 Flow Rate FiO2 02/25/17 04:46 97.0 61 18 124/61 (82) 97 02/24/17 18:45 Nasal Cannula 2 Cardiovascular: Regular Lungs: Clear Abdomen: Post-op tenderness Wound Wound : Wound Location: Abdomen A/P Assessment and Plan s/p lap paraesophageal hernia repair POD #1 doing well d/c home f/u office 10 days Vinicio Sharp MD Feb 25, 2017 07:33
[2017-02-25 08:00] VITALS: BP 128/59; PULSE 65; RESP 16; TEMP 97.2; O2SAT 94
[2017-02-25 08:48] VITALS: O2SAT 96
[2017-02-25] MEDS: SODIUM CHLORIDE 0.9% FLUSH 10 ML FLUSH IV FLUSH SCH (09:00)
[2017-02-25] MEDS: DOCUSATE SODIUM 100 MG CAP PO SCH (09:00)
[2017-02-25] MEDS ORDERED: ENOXAPARIN SODIUM 30 MG/0.3 ML SYRINGE SQ SCH (17:00)
== END 2017-02-25 11:23 | disposition home or self-care (01) | DRG 328 ==
LOC: HSDI 09:31 → N07B 19:02
PROVIDERS: ADMIT Surgery; ATTEND Surgery
PROC: 0DV48ZZ Restriction of Esophagogastric Junction, Via Natural or Artificial Opening Endoscopic (ICD-10-PCS; 2017-02-24)
PROC: 0DS68ZZ Reposition Stomach, Via Natural or Artificial Opening Endoscopic (ICD-10-PCS; 2017-02-24)
PROC: 8E0W4CZ Robotic Assisted Procedure of Trunk Region, Percutaneous Endoscopic Approach (ICD-10-PCS; 2017-02-24)
PROC: 0BUT4JZ Supplement Diaphragm with Synthetic Substitute, Percutaneous Endoscopic Approach (ICD-10-PCS; principal; 2017-02-24 13:20)
DX: K44.9 Diaphragmatic hernia without obstruction or gangrene (principal); K21.9 Gastro-esophageal reflux disease without esophagitis; J44.9 Chronic obstructive pulmonary disease, unspecified; J45.909 Unspecified asthma, uncomplicated; Z87.891 Personal history of nicotine dependence
CPT/HCPCS: 94150; J0131; J0690; J1170; J2270; J2405; J2765; J7030; J7120